=== PATIENT | female | born 1930 | race Caucasian/White ===

== ENCOUNTER 2016-08-11 08:56 | Emergency (ER) | payer MEDICARE, OTHER ==
[2016-08-11] MEDS ORDERED: LIDOCAINE/EPI/TETRACAINE 1 APPLIC SYRINGE TOP ONE ×2 (09:24→09:25)
--- NOTE | 2016-08-11 10:26 | ED Physician Documentation ---
General Adult - HISTORIAN Historian: patient - HPI Stated Complaint: Fall- Skin Tear Chief Complaint: General Adult Additional Information: fell Monday, no LOC, no vertigo, no syncope Onset: days ago (2) Timing: still present Severity: moderate Modifying Factors: skin tear right forearm, hit head right periorbital area Context: fell Quality: moderate Location: right forearm and right periorbital area Further Comments: no - ROS CONST: no problems EYES/ENT: none CVS/RESP: none GI/: none MS/SKIN/LYMPH: none NEURO/PSYCH: denies: headache, fainting, dizziness, tingling, numbness, difficulty walking, difficulty with speech, anxiety, depression - PAST HX Past History: A-Fib, hypertension Other History: other (hypothyroidism) Surgeries/Procedures: none Immunizations: UTD Allergies/Adverse Reactions: Allergies Allergy/AdvReac Type Severity Reaction Status Date / Time iodixanol [From Visipaque] AdvReac Mild Hives Verified 08/11/16 09:11 Home Medications: Ambulatory Orders Medication Instructions Recorded Albuterol Sulfate [Ventolin Hfa] 2 puff INH DIRECTED PRN 11/27/15 Calcium Citrate [Calcitrate] 1 tab PO DAILY 11/27/15 Diltiazem HCl [Cardizem Cd] 240 mg PO DAILY 11/27/15 Levothyroxine Sodium [Synthroid] 50 mcg PO DAILY 11/27/15 Lisinopril/Hydrochlorothiazide 1 each PO DAILY 11/27/15 [Zestoretic 20-12.5 mg Tablet] Metoprolol Tartrate [Lopressor] 50 mg PO DAILY 11/27/15 Potassium Chloride [Klor-Con M20] 20 meq PO DAILY 11/27/15 Rivaroxaban [Xarelto] 20 mg PO DAILY 11/27/15 - SOCIAL HX Smoking History: non-smoker Alcohol Use: none Drug Use: none - FAMILY HX Family History: No - VITAL SIGNS Vital Signs: Vital Signs Temp Pulse Resp BP Pulse Ox 97.1 F L 72 16 146/51 99 08/11/16 08:56 08/11/16 08:56 08/11/16 08:56 08/11/16 08:56 08/11/16 08:56 - REVIEWED ASSESSMENTS Nursing Assessment Reviewed: Yes Vitals Reviewed: Yes Procedures Wound Location: upper extremity (right forearm) Wound Length: 6 x 4 cm Wound's Depth, Shape: superficial, flap Wound Explored: clean Betadine Prep?: No (sureclepreeti) Anesthesia: L.E.T Wound Debrided: none Wound Repaired With: steri-strips Sterile Dressing Applied?: Yes Splint Applied?: No Sling Applied?: No Progress - Results/Orders Results/Orders: no testing ordered - Progress Progress: right forearm skin tear steri stripped and a pressure/matty dressing applied. Critical Care Note - Critical Care Note Total Time (mins): 0 ED Results Lab/Radiology - Lab Results Lab Results: none ordered - Radiology Radiology Impressions: none ordered - Orders Orders: ED Orders Category Date Time Status Lidocaine/Epi/Tetracaine [L.e.t] Med 08/11/16 09:25 Discontinued 1 applic TOP NOW ONE Lidocaine/Epi/Tetracaine [L.e.t] Med 08/11/16 09:24 Discontinued 2 applic TOP .STK-MED ONE General Adult Physical Exam - PHYSICAL EXAM GENERAL APPEARANCE: mild distress EENT: eye inspection normal, ENT inspection normal, pharynx normal, no signs of dehydration NECK: normal inspection, thyroid normal RESPIRATORY: no resp distress, chest non-tender, breath sounds normal CVS: reg rate & rhythm, heart sounds normal, equal pulses ABDOMEN: soft, no organomegaly, normal bowel sounds, no abdominal bruit BACK: normal inspection, no CVA tenderness SKIN: warm/dry, normal color EXTREMITIES: normal range of motion, other (right forearm 4 x 6 cm skin tear) NEURO: oriented X3, CN's nml as tested, motor nml, sensation nml, mood/affect nml, cognition normal Discharge Clincal Impression: Skin tear Additional Instructions: keep bandaged/clean/dry for 48 hours. Thern normal bathing. If steri strips do not fall off by themselves in seven days they may be removed. Home Medications: Ambulatory Orders Albuterol Sulfate [Ventolin Hfa] 2 puff INH DIRECTED PRN 11/27/15 Calcium Citrate [Calcitrate] 1 tab PO DAILY 11/27/15 Diltiazem HCl [Cardizem Cd] 240 mg PO DAILY 11/27/15 Levothyroxine Sodium [Synthroid] 50 mcg PO DAILY 11/27/15 Lisinopril/Hydrochlorothiazide [Zestoretic 20-12.5 mg Tablet] 1 each PO DAILY Metoprolol Tartrate [Lopressor] 50 mg PO DAILY 11/27/15 Potassium Chloride [Klor-Con M20] 20 meq PO DAILY 11/27/15 Rivaroxaban [Xarelto] 20 mg PO DAILY 11/27/15 Condition: Stable Disposition: 01 HOME, SELF-CARE Decision to Admit: NO Decision Time: 10:25
[2016-08-11 10:52] VITALS: BP 132/58
== END 2016-08-11 10:30 | disposition home or self-care (01) ==
LOC: ED 08:56
DX: S51.811A Laceration without foreign body of right forearm, initial encounter (principal); W19.XXXA Unspecified fall, initial encounter; Y93.9 Activity, unspecified; Y99.9 Unspecified external cause status
CPT/HCPCS: 99283

== ENCOUNTER 2016-10-24 09:08 | Emergency (ER) | payer MEDICARE, OTHER ==
[2016-10-24 09:26] VITALS: BP 174/50
--- NOTE | 2016-10-24 09:45 | ED Physician Documentation ---
Fall - HISTORIAN Historian: patient, spouse - HPI Stated Complaint: left wrist pain Chief Complaint: Fall Additional Information: fell [address] to bathroom-=just [place] balanced fell w lt hand/wrist pain. denied other injuries Onset: hours (299) Where: home Context: lost balance r: moderate Associated Symptoms:: no loss of consciousness Location of Pain/Injury: denies: head, neck, face, chest, abdomen, upper back, mid back, lower back, L shoulder Injury to Right Extremity: none Injury to Left Extremity: wrist, hand - ROS CONST: no problems NEURO: denies: dizziness, anxiety MS/SKIN/LYMPH: denies: weakness, numbness, neck pain, back pain CVS/RESP: none. denies: chest pain, shortness of breath, palpitations - PAST HX Past History: other (lymphoma cva copd) Allergies/Adverse Reactions: Allergies Allergy/AdvReac Type Severity Reaction Status Date / Time iodixanol [From Visipaque] AdvReac Mild Hives Verified 10/24/16 09:26 Home Medications: Ambulatory Orders Medication Instructions Recorded Albuterol Sulfate [Ventolin Hfa] 2 puff INH DIRECTED PRN 11/27/15 Calcium Citrate [Calcitrate] 1 tab PO DAILY 11/27/15 Diltiazem HCl [Cardizem Cd] 240 mg PO DAILY 11/27/15 Levothyroxine Sodium [Synthroid] 50 mcg PO DAILY 11/27/15 Lisinopril/Hydrochlorothiazide 1 each PO DAILY 11/27/15 [Zestoretic 20-12.5 mg Tablet] Metoprolol Tartrate [Lopressor] 50 mg PO DAILY 11/27/15 Potassium Chloride [Klor-Con M20] 20 meq PO DAILY 11/27/15 Rivaroxaban [Xarelto] 20 mg PO DAILY 11/27/15 - SOCIAL HX Smoking History: non-smoker Alcohol Use: none Drug Use: none - FAMILY HX Family History: no significant history - VITAL SIGNS Vital Signs: Vital Signs Temp Pulse Resp BP Pulse Ox 98.1 F 73 20 174/50 91 L 10/24/16 09:21 10/24/16 09:21 10/24/16 09:21 10/24/16 09:21 10/24/16 09:21 - REVIEWED ASSESSMENTS Nursing Assessment Reviewed: Yes Vitals Reviewed: Yes ED Results Lab/Radiology - Radiology Radiology Impressions: fracture lt distal radius-severe arthritis. - Orders Orders: ED Orders Category Date Time Status WRIST 3 VIEWS OR MORE [RAD] Stat Exams 10/24/16 Ordered XR HAND [HAND 3 VIEWS OR MORE] [RAD] Stat Exams 10/24/16 Ordered Fall Physical Exam - Physical Exam General Appearance: mild distress Head: non-tender, no swelling Neck: non-tender, painless ROM Eye: PONCHO, EOMI ENT: nml external inspection Resp/CVS: chest non-tender, no ecchymosis, breath sounds nml, no resp. distress , heart sounds nml Abdomen: soft, non-tender Neuro: oriented x3, sensation nml, motor nml, mood/affect nml Skin: color nml, no rash, cyanosis (dorsum lt hand) Back: no vertebral tenderness Extremities: pelvis stable, hips non-tender Joint: No: nml ROM - [place] Coma Score Eyes Open: Spontaneous Speech: Oriented Motor: Obeys Commands Discharge Clincal Impression: fall w/ fx lt wrist Home Medications: Ambulatory Orders Albuterol Sulfate [Ventolin Hfa] 2 puff INH DIRECTED PRN 11/27/15 Calcium Citrate [Calcitrate] 1 tab PO DAILY 11/27/15 Diltiazem HCl [Cardizem Cd] 240 mg PO DAILY 11/27/15 Levothyroxine Sodium [Synthroid] 50 mcg PO DAILY 11/27/15 Lisinopril/Hydrochlorothiazide [Zestoretic 20-12.5 mg Tablet] 1 each PO DAILY Metoprolol Tartrate [Lopressor] 50 mg PO DAILY 11/27/15 Potassium Chloride [Klor-Con M20] 20 meq PO DAILY 11/27/15 Rivaroxaban [Xarelto] 20 mg PO DAILY 11/27/15 Comments: home cpt has appt w/ortho wed Condition: Good Disposition: 01 HOME, SELF-CARE Decision to Admit: NO (n) Decision Time: 11:04
[2016-10-24] MEDS ORDERED: HYDROmorphone HCL/PF 1 MG/ML DISP.SYRIN ONE (10:07)
[2016-10-24] MEDS ORDERED: HYDROcodone /APAP 5/325 1 EACH TABLET PO ONE (10:38)
[2016-10-24] MEDS ORDERED: HYDROmorphone HCL/PF 1 MG/ML DISP.SYRIN IM ONE (10:42)
--- NOTE | 2016-10-24 13:55 | Diagnostic Imaging Report ---
[facility] [address] [facility].[address] [address] Report Submission Date: Oct 24, 2016 10:23:40 AM CDT Patient Study Name: SAMANTHA OHARA Date: Oct 24, 2016 9:49:39 AM CDT Modality Type: CR Gender: F Description: UPPER EXTREMITY : 34 Institution: [facility] Physician: ESTEBAN JARA - MERLY Left hand, 3 views. History: Pain after fall. Findings: There is a transverse distal radius fracture present with mild impaction and dorsal angulation. The ulna and remaining osseous structures of the hand are intact. There is narrowing of the interphalangeal joint spaces throughout. The bones are osteopenic. Impression: 1. Distal radius fracture with impaction and mild dorsal angulation. 2. Osteopenia. Electronically signed on Oct 24, 2016 10:23:40 AM CDT by: Nghia REDD
--- NOTE | 2016-10-24 13:56 | Diagnostic Imaging Report ---
[facility] [address] [facility].[address] [address] Report Submission Date: Oct 24, 2016 10:25:48 AM CDT Patient Study Name: SAMANTHA OHARA Date: Oct 24, 2016 9:53:00 AM CDT Modality Type: CR Gender: F Description: UPPER EXTREMITY : 34 Institution: [facility] Physician: ESTEBAN JARA - ER Left wrist, 3 views History: FALL BRUISING AND SWELLING OVER RADIAL SIDE OF WRIST AND 4TH AND 5TH METACARPALS Findings: There is a fracture of the distal radius without intra-articular extension. There is mild impaction and dorsal angulation. The ulna is intact. The remaining osseous structures of the wrist are also withoutfracture. The bones are diffusely osteopenic. Impression: 1. Transverse distal radius fracture with mild impaction and dorsal angulation. 2. Osteopenia Electronically signed on Oct 24, 2016 10:25:48 AM CDT by: Nghia REDD
== END 2016-10-24 11:12 | disposition home or self-care (01) ==
LOC: ED 09:08
DX: S62.102A Fracture of unspecified carpal bone, left wrist, initial encounter for closed fracture (principal); W19.XXXA Unspecified fall, initial encounter; Y93.9 Activity, unspecified; Y99.9 Unspecified external cause status
CPT/HCPCS: 73110; 73130; A9270; J1170; L3908; 96374; 99283

== ENCOUNTER 2016-10-29 11:32 | Inpatient (IN) | payer MEDICARE, OTHER ==
[2016-10-29] MEDS ORDERED: ALBUTEROL SULFATE 2.5 MG/3 ML AMPUL.NEB NEB PRN (13:57)
--- NOTE | 2016-10-29 14:05 | History and Physical Report ---
History of Present Illnes - History of Present Illness Reason for Visit: Weakness History of Present Illness: Patient presents for SNF admission. She reports 10-24-16 she fell and fractured her L wrist. She noted some L hip pain in Dr. Escoto's office and was found to have a L hip fracture. Underwent repair of both. Due to nature of injury, patient is being referred to SNF for strenthening and conditioning before returning home. Post op course has been unremarkable. Questions surround her anticoagulation. I was told by DR. Escoto's PA that we can put her on Lovenox. However Dr. Carney and Dr. 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 According to patient she told Dr. Carney she will refuse to be on Xarelto due to "what it did" to her body the last time she took it. So they settled on lovenox for 2 weeks - this is what is on her discharge orders. 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) Endocrine: Hypothyroidism - Past Surgical History Past Surgical History: Other (RML lung resection 2011 - lymphoma), Other (L hip and wrist repair 10/17.) - Past Family History Mother Family History: CVA, Hypertension, Father Family History: CAD, - Past Social History Smoke: Quit Alcohol: None Drugs: None Lives: With Family () - Health Maintenance Health Maintenance: Influenza Vaccine, Pneumococcal Vaccine, Mammogram Influenza Vaccine: Current for this Influenza Season Pneumonia Vaccine: Yes Resuscitation Status: Resusciation Status Resuscitation Status Full Code Review of Systems - Review of Systems Constitutional: Weakness. negative: Fever Eyes: negative: pain ENT: negative: Ear Pain Respiratory: negative: Cough, Shortness of Breath Cardiovascular: negative: Chest Pain Gastrointestinal: negative: Nausea, Constipation Genitourinary: negative: Dysuria Musculoskeletal: negative: Neck Pain Skin: negative: Rash Neurological: Weakness - Medications/Allergies Allergies/Adverse Reactions: Allergies Allergy/AdvReac Type Severity Reaction Status Date / Time iodixanol [From Visipaque] AdvReac Mild Hives Verified 10/29/16 19:46 IV Contrast Allergy Uncoded 10/29/16 19:46 Home Medications: Home Medications Albuterol Sulfate [Ventolin] 2.5 mg NEB Q4 PRN 10/29/16 Arformoterol Tartrate [Brovana] 15 mcg IH DAILY 10/29/16 Aspirin [Adult Low Dose Aspirin EC] 81 mg PO DAILY 10/29/16 Atorvastatin Calcium 40 mg PO HS 10/29/16 Budesonide [Pulmicort] 0.5 mg IH DAILY 10/29/16 Calcium Citrate/Vitamin D3 [Calcium Citrate +Vit D3 Tablet] 1 each PO DAILY Carvedilol [Coreg] 12.5 mg PO BS 10/29/16 Enoxaparin Sodium [Lovenox] 40 mg SQ QD 10/29/16 Escitalopram Oxalate [Lexapro] 10 mg PO QD 10/29/16 Gabapentin [Neurontin] 100 mg PO BID 10/29/16 HYDROcodone /APAP 5/325 [[place] 5/325] 1 - 2 each PO Q4 PRN 10/29/16 Hydrochlorothiazide [Hydrodiuril] 12.5 mg PO DAILY 10/29/16 Levothyroxine Sodium [Synthroid] 50 mcg PO DAILY 10/29/16 Lisinopril [Prinivil] 20 mg PO BID 10/29/16 Oxygen 2 l INH DAILY 10/29/16 Pantoprazole Sodium [Protonix] 40 mg PO 0700 10/29/16 Potassium Chloride [Klor-Con M20] 20 meq PO BS 10/29/16 amLODIPine BESYLATE [Norvasc] 5 mg PO 0900 10/29/16 Current Inpatient Medications: Current Inpatient Medications Albuterol Sulfate (Ventolin) 2.5 mg NEB Q4 PRN PRN Reason: Wheezing Amlodipine Besylate (Norvasc) 5 mg PO 0900 [facility] Arformoterol Tartrate (Brovana) 15 mcg IH DAILY [facility] Aspirin (Ecotrin) 81 mg PO DAILY [facility] Atorvastatin Calcium (Lipitor) 40 mg PO HS [facility] Budesonide (Pulmicort) 0.5 mg NEB DAILY [facility] Carvedilol (Coreg) 12.5 mg PO BID [facility] Enoxaparin Sodium (Lovenox) 40 mg SQ QD [facility] Stop: 11/12/16 13:59 Escitalopram Oxalate (Lexapro) 10 mg PO QD [facility] Gabapentin (Neurontin) 100 mg PO BID [facility] Hydrochlorothiazide (Hydrodiuril) 12.5 mg PO DAILY [facility] Levothyroxine Sodium (Synthroid) 50 mcg PO 0700 [facility] Lisinopril (Prinivil) 20 mg PO BID [facility] Pantoprazole Sodium (Protonix) 40 mg PO 0700 [facility] Potassium Chloride (Klor-Con M20) 20 meq PO BID [facility] Exam - Exam General: Alert, Oriented to Person, Oriented to Place, Oriented to Time, Cooperative, No acute distress HEENT: Atraumatic, PERRLA, EOMI, Mouth Mucous membr. moist/[place], Nose Mucous membr. moist/[place] Neck: Normal Range of Motion Lungs: Clear to auscultation, Normal air movement, Speaks full Sentences Cardiovascular: Regular rate Murmur: Systolic Murmur Abdomen: Normal bowel sounds, Soft, No tenderness Integumentary: Normal Extremities: No edema, Other (incision of L hip C/D/I; Cast on L wrist) Neurological: Generalized Weakness Psych/Mental Status: Mental status NL, Mood NL, Appropriate Affect, Intact Judgment Assessment/Plan - Assessment/Plan (1) Hip fracture, left Status: Acute Current Visit: Yes Qualifiers: Encounter type: sequela Qualified Code(s): S72.002S - Fracture of unspecified part of neck of left femur, sequela Plan: Plan to do lovenox for 2 weeks then switch to ASA daily. PT/OT eval and treat. Manoj out in 10 days. (2) Left wrist fracture Status: Acute Current Visit: Yes Qualifiers: Encounter type: sequela Qualified Code(s): S62.102S - Fracture of unspecified carpal bone, left wrist, sequela Plan: Casted until removed by ortho. (3) HTN (hypertension) Status: Chronic Current Visit: Yes Qualifiers: Hypertension type: essential hypertension Qualified Code(s): I10 - Essential (primary) hypertension Plan: stable. (4) COPD (chronic obstructive pulmonary disease) Status: Chronic Current Visit: Yes Qualifiers: COPD type: emphysema Emphysema type: unspecified Qualified Code(s): J43.9 - Emphysema, unspecified Plan: Cont. current regimen. (5) Weakness Status: Acute Current Visit: Yes Plan: PT/OT eval and treat. VTE Assessment - RISK FACTOR SCORE VTE RISK FACTOR SCORES: AGE OVER 60 YEARS, DOCUMENTED HX OF VTE - RISK VTE MODERATE RISK: SCORE OF 2 (RISK PROXIMAL DVT 2-4%) PROPHYAXIS NEEDED
[2016-10-29] MEDS: ESCITALOPRAM OXALATE 10 MG TABLET PO SCH (15:17)
[2016-10-29] MEDS: ENOXAPARIN SODIUM 40 MG/0.4 ML DISP.SYRIN SQ SCH (15:17)
[2016-10-29] MEDS ORDERED: CARVEDILOL 6.25 MG TABLET PO ONE ×2 (17:42→20:26)
[2016-10-29] MEDS: HYDROcodone /APAP 5/325 1 EACH TABLET PO PRN (17:48)
[2016-10-29 19:45] VITALS: BMI 18.8
[2016-10-29] MEDS: ATORVASTATIN CALCIUM 80 MG TABLET PO SCH (21:01)
[2016-10-29] MEDS: CARVEDILOL 12.5 MG TABLET PO SCH (21:01)
[2016-10-29] MEDS: LISINOPRIL 20 MG TABLET PO SCH (21:01)
[2016-10-29] MEDS: GABAPENTIN 100 MG CAPSULE PO SCH (21:01)
[2016-10-29] MEDS: POTASSIUM CHLORIDE 20 MEQ TABLET.ER PO SCH (21:01)
[2016-10-30] MEDS: HYDROcodone /APAP 5/325 1 EACH TABLET PO PRN ×4 (00:11→19:03)
[2016-10-30] MEDS ORDERED: CARVEDILOL 6.25 MG TABLET PO ONE (04:57)
[2016-10-30] MEDS: PANTOPRAZOLE SODIUM 40 MG TABLET PO SCH (05:11)
[2016-10-30] MEDS: LEVOTHYROXINE SODIUM 25 MCG TABLET PO SCH (05:12)
[2016-10-30] MEDS: ACETYLCYSTEINE EACHEYE SCH ×4 (06:43→20:26)
[2016-10-30] MEDS ORDERED: OXYGEN INH SCH (09:00)
[2016-10-30] MEDS: CARVEDILOL 12.5 MG TABLET PO SCH ×2 (09:27→20:44)
[2016-10-30] MEDS: POTASSIUM CHLORIDE 20 MEQ TABLET.ER PO SCH ×2 (09:28→20:25)
[2016-10-30] MEDS: amLODIPine BESYLATE 5 MG TABLET PO SCH (09:29)
[2016-10-30] MEDS: LISINOPRIL 20 MG TABLET PO SCH ×2 (09:29→20:26)
[2016-10-30] MEDS: ASPIRIN EC 81 MG TABLET.DR PO SCH (09:49)
[2016-10-30] MEDS: HYDROCHLOROTHIAZIDE 25 MG TABLET PO SCH (09:52)
[2016-10-30] MEDS: GABAPENTIN 100 MG CAPSULE PO SCH ×2 (09:55→20:26)
[2016-10-30] MEDS: BUDESONIDE 0.5MG/2ML AMPUL.NEB NEB SCH (12:45)
[2016-10-30] MEDS: DOCUSATE SODIUM 100 MG CAPSULE PO SCH ×2 (14:24→20:27)
[2016-10-30] MEDS: ESCITALOPRAM OXALATE 10 MG TABLET PO SCH (14:25)
[2016-10-30] MEDS: ENOXAPARIN SODIUM 40 MG/0.4 ML DISP.SYRIN SQ SCH (14:29)
[2016-10-30] MEDS: ARFORMOTEROL TARTRATE 15 MCG/2 ML AMPUL.NEB IH SCH (15:28)
[2016-10-30] MEDS: ATORVASTATIN CALCIUM 80 MG TABLET PO SCH (20:25)
[2016-10-31] MEDS: HYDROcodone /APAP 5/325 1 EACH TABLET PO PRN ×5 (02:27→21:37)
[2016-10-31] MEDS: PANTOPRAZOLE SODIUM 40 MG TABLET PO SCH (06:24)
[2016-10-31] MEDS: LEVOTHYROXINE SODIUM 25 MCG TABLET PO SCH (06:24)
[2016-10-31] MEDS: ACETYLCYSTEINE EACHEYE SCH ×4 (06:26→20:43)
[2016-10-31] MEDS: HYDROCHLOROTHIAZIDE 25 MG TABLET PO SCH (08:03)
[2016-10-31] MEDS: LISINOPRIL 20 MG TABLET PO SCH ×2 (08:03→20:53)
[2016-10-31] MEDS: ASPIRIN EC 81 MG TABLET.DR PO SCH (08:03)
[2016-10-31] MEDS: DOCUSATE SODIUM 100 MG CAPSULE PO SCH ×2 (08:03→20:43)
[2016-10-31] MEDS: CARVEDILOL 12.5 MG TABLET PO SCH ×2 (08:04→20:43)
[2016-10-31] MEDS: POTASSIUM CHLORIDE 20 MEQ TABLET.ER PO SCH ×2 (08:04→20:52)
[2016-10-31] MEDS: amLODIPine BESYLATE 5 MG TABLET PO SCH (08:04)
[2016-10-31] MEDS: GABAPENTIN 100 MG CAPSULE PO SCH ×2 (08:04→20:52)
[2016-10-31] MEDS: BUDESONIDE 0.5MG/2ML AMPUL.NEB NEB SCH (09:10)
[2016-10-31] MEDS: ARFORMOTEROL TARTRATE 15 MCG/2 ML AMPUL.NEB IH SCH (09:26)
[2016-10-31] MEDS: ENOXAPARIN SODIUM 40 MG/0.4 ML DISP.SYRIN SQ SCH (13:01)
[2016-10-31] MEDS: ESCITALOPRAM OXALATE 10 MG TABLET PO SCH (13:01)
[2016-10-31] MEDS ORDERED: CARVEDILOL 6.25 MG TABLET PO ONE (20:41)
[2016-10-31] MEDS: ATORVASTATIN CALCIUM 80 MG TABLET PO SCH (20:52)
[2016-11-01] MEDS: HYDROcodone /APAP 5/325 1 EACH TABLET PO PRN ×3 (03:43→14:05)
[2016-11-01] MEDS ORDERED: CARVEDILOL 6.25 MG TABLET PO ONE (04:19)
[2016-11-01] MEDS: LEVOTHYROXINE SODIUM 25 MCG TABLET PO SCH (06:44)
[2016-11-01] MEDS: PANTOPRAZOLE SODIUM 40 MG TABLET PO SCH (06:44)
--- NOTE | 2016-11-01 08:16 | Inpatient Progress Note ---
Subjective - Required Recertification Statement I anticipate X number of days because-include discharge plan: 7 - Review of Systems Subjective: Doing well. Occasional pain in wrist and hip. Objective - Exam Vitals and I&O: Vital Signs Temp 98.4 F 10/31/16 21:00 Pulse 63 10/31/16 21:00 Resp 20 10/31/16 21:00 BP 142/49 10/31/16 21:00 Pulse Ox 97 10/31/16 21:00 Intake & Output 10/31/16 10/31/16 11/01/16 11:59 23:59 11:59 Intake Total 360 200 360 Balance 360 200 360 Weight 46.266 kg Intake: Oral 360 200 360 Other: Voiding Method Toilet Toilet # Voids 4 4 # Bowel Movements 0 General: Alert, Oriented to Person, Oriented to Place, Oriented to Time, Cooperative, No acute distress Lungs: Clear to auscultation, Normal air movement, Speaks full Sentences Assessment/Plan - Assessment/Plan (1) Hip fracture, left Status: Acute Current Visit: Yes Qualifiers: Encounter type: sequela Qualified Code(s): S72.002S - Fracture of unspecified part of neck of left femur, sequela Plan: Cont. PT/OT. Lovenox for DVT prevention. (2) Left wrist fracture Status: Acute Current Visit: Yes Qualifiers: Encounter type: sequela Qualified Code(s): S62.102S - Fracture of unspecified carpal bone, left wrist, sequela (3) HTN (hypertension) Status: Chronic Current Visit: Yes Qualifiers: Hypertension type: essential hypertension Qualified Code(s): I10 - Essential (primary) hypertension (4) COPD (chronic obstructive pulmonary disease) Status: Chronic Current Visit: Yes Qualifiers: COPD type: emphysema Emphysema type: unspecified Qualified Code(s): J43.9 - Emphysema, unspecified (5) Weakness Status: Acute Current Visit: Yes
[2016-11-01] MEDS: BUDESONIDE 0.5MG/2ML AMPUL.NEB NEB SCH (09:30)
[2016-11-01] MEDS: HYDROCHLOROTHIAZIDE 25 MG TABLET PO SCH (09:33)
[2016-11-01] MEDS: POTASSIUM CHLORIDE 20 MEQ TABLET.ER PO SCH ×2 (09:33→20:04)
[2016-11-01] MEDS: ACETYLCYSTEINE EACHEYE SCH ×4 (09:33→20:06)
[2016-11-01] MEDS: GABAPENTIN 100 MG CAPSULE PO SCH ×2 (09:36→20:05)
[2016-11-01] MEDS: CARVEDILOL 12.5 MG TABLET PO SCH ×2 (09:36→20:04)
[2016-11-01] MEDS: LISINOPRIL 20 MG TABLET PO SCH ×2 (09:36→20:05)
[2016-11-01] MEDS: amLODIPine BESYLATE 5 MG TABLET PO SCH (09:36)
[2016-11-01] MEDS: ASPIRIN EC 81 MG TABLET.DR PO SCH (09:36)
[2016-11-01] MEDS: DOCUSATE SODIUM 100 MG CAPSULE PO SCH ×2 (09:37→20:06)
[2016-11-01] MEDS: ARFORMOTEROL TARTRATE 15 MCG/2 ML AMPUL.NEB IH SCH (09:38)
[2016-11-01] MEDS: ESCITALOPRAM OXALATE 10 MG TABLET PO SCH (13:45)
[2016-11-01] MEDS: ENOXAPARIN SODIUM 40 MG/0.4 ML DISP.SYRIN SQ SCH (13:45)
[2016-11-01] MEDS: ATORVASTATIN CALCIUM 80 MG TABLET PO SCH (20:05)
[2016-11-01] MEDS ORDERED: HYDROCHLOROTHIAZIDE 25 MG TABLET PO ONE (22:53)
[2016-11-02] MEDS: PANTOPRAZOLE SODIUM 40 MG TABLET PO SCH (05:53)
[2016-11-02] MEDS: LEVOTHYROXINE SODIUM 25 MCG TABLET PO SCH (05:53)
[2016-11-02] MEDS: ACETYLCYSTEINE EACHEYE SCH ×4 (07:22→20:50)
[2016-11-02] MEDS: HYDROcodone /APAP 5/325 1 EACH TABLET PO PRN ×3 (08:41→20:54)
[2016-11-02] MEDS: DOCUSATE SODIUM 100 MG CAPSULE PO SCH ×2 (09:16→20:41)
[2016-11-02] MEDS: CARVEDILOL 12.5 MG TABLET PO SCH ×2 (09:18→20:41)
[2016-11-02] MEDS: HYDROCHLOROTHIAZIDE 25 MG TABLET PO SCH (09:18)
[2016-11-02] MEDS: ASPIRIN EC 81 MG TABLET.DR PO SCH (09:18)
[2016-11-02] MEDS: POTASSIUM CHLORIDE 20 MEQ TABLET.ER PO SCH ×2 (09:20→20:40)
[2016-11-02] MEDS: GABAPENTIN 100 MG CAPSULE PO SCH ×2 (09:21→20:41)
[2016-11-02] MEDS: amLODIPine BESYLATE 5 MG TABLET PO SCH (09:21)
[2016-11-02] MEDS: LISINOPRIL 20 MG TABLET PO SCH ×2 (09:21→20:40)
[2016-11-02] MEDS: BUDESONIDE 0.5MG/2ML AMPUL.NEB NEB SCH (09:38)
[2016-11-02] MEDS: ARFORMOTEROL TARTRATE 15 MCG/2 ML AMPUL.NEB IH SCH (09:38)
[2016-11-02] MEDS: ESCITALOPRAM OXALATE 10 MG TABLET PO SCH (13:55)
[2016-11-02] MEDS: ENOXAPARIN SODIUM 40 MG/0.4 ML DISP.SYRIN SQ SCH (13:55)
[2016-11-02] MEDS: ATORVASTATIN CALCIUM 80 MG TABLET PO SCH (20:40)
[2016-11-03] MEDS: PANTOPRAZOLE SODIUM 40 MG TABLET PO SCH (05:56)
[2016-11-03] MEDS: LEVOTHYROXINE SODIUM 25 MCG TABLET PO SCH (05:56)
[2016-11-03] MEDS: HYDROcodone /APAP 5/325 1 EACH TABLET PO PRN ×4 (06:41→22:38)
[2016-11-03] MEDS: ACETYLCYSTEINE EACHEYE SCH ×4 (06:41→20:07)
[2016-11-03] MEDS: CARVEDILOL 12.5 MG TABLET PO SCH ×2 (08:50→20:06)
[2016-11-03] MEDS: POTASSIUM CHLORIDE 20 MEQ TABLET.ER PO SCH ×3 (08:50→20:06)
[2016-11-03] MEDS: GABAPENTIN 100 MG CAPSULE PO SCH ×2 (08:51→20:07)
[2016-11-03] MEDS: HYDROCHLOROTHIAZIDE 25 MG TABLET PO SCH (08:52)
[2016-11-03] MEDS: ASPIRIN EC 81 MG TABLET.DR PO SCH (08:52)
[2016-11-03] MEDS: LISINOPRIL 20 MG TABLET PO SCH ×2 (08:52→20:07)
[2016-11-03] MEDS: DOCUSATE SODIUM 100 MG CAPSULE PO SCH ×2 (08:54→20:07)
[2016-11-03] MEDS: amLODIPine BESYLATE 5 MG TABLET PO SCH (08:54)
[2016-11-03] MEDS: ARFORMOTEROL TARTRATE 15 MCG/2 ML AMPUL.NEB IH SCH (10:00)
[2016-11-03] MEDS: BUDESONIDE 0.5MG/2ML AMPUL.NEB NEB SCH (10:00)
[2016-11-03] MEDS: ENOXAPARIN SODIUM 40 MG/0.4 ML DISP.SYRIN SQ SCH (14:21)
[2016-11-03] MEDS: ESCITALOPRAM OXALATE 10 MG TABLET PO SCH (14:22)
[2016-11-03] MEDS: ATORVASTATIN CALCIUM 80 MG TABLET PO SCH (20:06)
[2016-11-04] MEDS: HYDROcodone /APAP 5/325 1 EACH TABLET PO PRN ×4 (04:43→19:04)
[2016-11-04] MEDS: LEVOTHYROXINE SODIUM 25 MCG TABLET PO SCH (06:06)
[2016-11-04] MEDS: PANTOPRAZOLE SODIUM 40 MG TABLET PO SCH (06:06)
[2016-11-04] MEDS: ACETYLCYSTEINE EACHEYE SCH ×4 (06:07→20:27)
[2016-11-04] MEDS: POTASSIUM CHLORIDE 20 MEQ TABLET.ER PO SCH ×2 (13:20→20:25)
[2016-11-04] MEDS: LISINOPRIL 20 MG TABLET PO SCH ×2 (13:20→20:25)
[2016-11-04] MEDS: CARVEDILOL 12.5 MG TABLET PO SCH ×2 (13:20→20:25)
[2016-11-04] MEDS: GABAPENTIN 100 MG CAPSULE PO SCH ×2 (13:20→20:25)
[2016-11-04] MEDS: amLODIPine BESYLATE 5 MG TABLET PO SCH (13:23)
[2016-11-04] MEDS: ASPIRIN EC 81 MG TABLET.DR PO SCH (13:23)
[2016-11-04] MEDS: HYDROCHLOROTHIAZIDE 25 MG TABLET PO SCH (13:23)
[2016-11-04] MEDS: ARFORMOTEROL TARTRATE 15 MCG/2 ML AMPUL.NEB IH SCH (13:23)
[2016-11-04] MEDS: ESCITALOPRAM OXALATE 10 MG TABLET PO SCH (13:24)
[2016-11-04] MEDS: ENOXAPARIN SODIUM 40 MG/0.4 ML DISP.SYRIN SQ SCH (13:25)
[2016-11-04] MEDS: DOCUSATE SODIUM 100 MG CAPSULE PO SCH ×2 (13:26→20:25)
[2016-11-04] MEDS: BUDESONIDE 0.5MG/2ML AMPUL.NEB NEB SCH (20:19)
[2016-11-04] MEDS: ATORVASTATIN CALCIUM 80 MG TABLET PO SCH (20:25)
[2016-11-05] MEDS: HYDROcodone /APAP 5/325 1 EACH TABLET PO PRN ×2 (03:00→13:29)
[2016-11-05] MEDS: LEVOTHYROXINE SODIUM 25 MCG TABLET PO SCH (05:55)
[2016-11-05] MEDS: PANTOPRAZOLE SODIUM 40 MG TABLET PO SCH (05:55)
[2016-11-05] MEDS: ACETYLCYSTEINE EACHEYE SCH ×4 (05:57→22:48)
[2016-11-05] MEDS: ARFORMOTEROL TARTRATE 15 MCG/2 ML AMPUL.NEB IH SCH (09:45)
[2016-11-05] MEDS: BUDESONIDE 0.5MG/2ML AMPUL.NEB NEB SCH (09:45)
[2016-11-05] MEDS: DOCUSATE SODIUM 100 MG CAPSULE PO SCH ×2 (10:04→19:59)
[2016-11-05] MEDS: LISINOPRIL 20 MG TABLET PO SCH ×2 (10:04→19:59)
[2016-11-05] MEDS: GABAPENTIN 100 MG CAPSULE PO SCH ×2 (10:04→19:59)
[2016-11-05] MEDS: ASPIRIN EC 81 MG TABLET.DR PO SCH (10:04)
[2016-11-05] MEDS: POTASSIUM CHLORIDE 20 MEQ TABLET.ER PO SCH ×2 (10:04→19:59)
[2016-11-05] MEDS: CARVEDILOL 12.5 MG TABLET PO SCH ×2 (10:04→19:59)
[2016-11-05] MEDS: HYDROCHLOROTHIAZIDE 25 MG TABLET PO SCH (10:05)
[2016-11-05] MEDS: amLODIPine BESYLATE 5 MG TABLET PO SCH (10:05)
[2016-11-05] MEDS: ENOXAPARIN SODIUM 40 MG/0.4 ML DISP.SYRIN SQ SCH (13:29)
[2016-11-05] MEDS: ESCITALOPRAM OXALATE 10 MG TABLET PO SCH (13:30)
[2016-11-05] MEDS: ATORVASTATIN CALCIUM 80 MG TABLET PO SCH (19:59)
[2016-11-06] MEDS: HYDROcodone /APAP 5/325 1 EACH TABLET PO PRN ×4 (03:00→19:42)
[2016-11-06] MEDS: PANTOPRAZOLE SODIUM 40 MG TABLET PO SCH (06:04)
[2016-11-06] MEDS: LEVOTHYROXINE SODIUM 25 MCG TABLET PO SCH (06:04)
[2016-11-06] MEDS: ACETYLCYSTEINE EACHEYE SCH ×4 (06:31→21:57)
[2016-11-06] MEDS: GABAPENTIN 100 MG CAPSULE PO SCH ×2 (09:32→19:45)
[2016-11-06] MEDS: CARVEDILOL 12.5 MG TABLET PO SCH ×2 (09:32→19:43)
[2016-11-06] MEDS: amLODIPine BESYLATE 5 MG TABLET PO SCH (09:32)
[2016-11-06] MEDS: LISINOPRIL 20 MG TABLET PO SCH ×2 (09:32→19:46)
[2016-11-06] MEDS: HYDROCHLOROTHIAZIDE 25 MG TABLET PO SCH (09:32)
[2016-11-06] MEDS: ASPIRIN EC 81 MG TABLET.DR PO SCH (09:32)
[2016-11-06] MEDS: DOCUSATE SODIUM 100 MG CAPSULE PO SCH ×2 (09:32→19:43)
[2016-11-06] MEDS: POTASSIUM CHLORIDE 20 MEQ TABLET.ER PO SCH ×2 (09:32→19:44)
[2016-11-06] MEDS: BUDESONIDE 0.5MG/2ML AMPUL.NEB NEB SCH (09:59)
[2016-11-06] MEDS: ARFORMOTEROL TARTRATE 15 MCG/2 ML AMPUL.NEB IH SCH (09:59)
[2016-11-06] MEDS: ESCITALOPRAM OXALATE 10 MG TABLET PO SCH (14:30)
[2016-11-06] MEDS: ENOXAPARIN SODIUM 40 MG/0.4 ML DISP.SYRIN SQ SCH (14:30)
[2016-11-06] MEDS: ATORVASTATIN CALCIUM 80 MG TABLET PO SCH (19:44)
[2016-11-07] MEDS: HYDROcodone /APAP 5/325 1 EACH TABLET PO PRN ×4 (03:14→20:40)
[2016-11-07] MEDS: PANTOPRAZOLE SODIUM 40 MG TABLET PO SCH (05:48)
[2016-11-07] MEDS: LEVOTHYROXINE SODIUM 25 MCG TABLET PO SCH (05:48)
[2016-11-07] MEDS: ACETYLCYSTEINE EACHEYE SCH ×4 (06:20→20:41)
[2016-11-07] MEDS: POTASSIUM CHLORIDE 20 MEQ TABLET.ER PO SCH ×2 (09:10→20:41)
[2016-11-07] MEDS: ARFORMOTEROL TARTRATE 15 MCG/2 ML AMPUL.NEB IH SCH (09:10)
[2016-11-07] MEDS: CARVEDILOL 12.5 MG TABLET PO SCH ×2 (09:10→20:41)
[2016-11-07] MEDS: GABAPENTIN 100 MG CAPSULE PO SCH ×2 (09:10→20:40)
[2016-11-07] MEDS: LISINOPRIL 20 MG TABLET PO SCH ×2 (09:10→20:41)
[2016-11-07] MEDS: BUDESONIDE 0.5MG/2ML AMPUL.NEB NEB SCH (09:10)
[2016-11-07] MEDS: HYDROCHLOROTHIAZIDE 25 MG TABLET PO SCH (09:11)
[2016-11-07] MEDS: ASPIRIN EC 81 MG TABLET.DR PO SCH (09:11)
[2016-11-07] MEDS: amLODIPine BESYLATE 5 MG TABLET PO SCH (09:12)
[2016-11-07] MEDS: DOCUSATE SODIUM 100 MG CAPSULE PO SCH ×2 (09:12→20:41)
[2016-11-07] MEDS: ENOXAPARIN SODIUM 40 MG/0.4 ML DISP.SYRIN SQ SCH (14:05)
[2016-11-07] MEDS: ESCITALOPRAM OXALATE 10 MG TABLET PO SCH (14:05)
[2016-11-07] MEDS: ATORVASTATIN CALCIUM 80 MG TABLET PO SCH (20:40)
[2016-11-08] MEDS: HYDROcodone /APAP 5/325 1 EACH TABLET PO PRN ×3 (03:04→17:55)
[2016-11-08] MEDS: LEVOTHYROXINE SODIUM 25 MCG TABLET PO SCH (06:19)
[2016-11-08] MEDS: PANTOPRAZOLE SODIUM 40 MG TABLET PO SCH (06:19)
[2016-11-08] MEDS: ACETYLCYSTEINE EACHEYE SCH ×4 (08:49→20:58)
[2016-11-08] MEDS: HYDROCHLOROTHIAZIDE 25 MG TABLET PO SCH (08:50)
[2016-11-08] MEDS: DOCUSATE SODIUM 100 MG CAPSULE PO SCH ×2 (08:50→20:58)
[2016-11-08] MEDS: amLODIPine BESYLATE 5 MG TABLET PO SCH (08:50)
[2016-11-08] MEDS: CARVEDILOL 12.5 MG TABLET PO SCH ×2 (08:50→20:57)
[2016-11-08] MEDS: POTASSIUM CHLORIDE 20 MEQ TABLET.ER PO SCH ×2 (08:50→20:57)
[2016-11-08] MEDS: LISINOPRIL 20 MG TABLET PO SCH ×2 (08:50→20:58)
[2016-11-08] MEDS: ASPIRIN EC 81 MG TABLET.DR PO SCH (08:50)
[2016-11-08] MEDS: GABAPENTIN 100 MG CAPSULE PO SCH ×2 (08:51→20:58)
[2016-11-08] MEDS: BUDESONIDE 0.5MG/2ML AMPUL.NEB NEB SCH (09:26)
[2016-11-08] MEDS: ARFORMOTEROL TARTRATE 15 MCG/2 ML AMPUL.NEB IH SCH (09:27)
[2016-11-08] MEDS: ESCITALOPRAM OXALATE 10 MG TABLET PO SCH (13:42)
[2016-11-08] MEDS: ENOXAPARIN SODIUM 40 MG/0.4 ML DISP.SYRIN SQ SCH (13:42)
[2016-11-08] MEDS: ATORVASTATIN CALCIUM 80 MG TABLET PO SCH (20:57)
[2016-11-09] MEDS: HYDROcodone /APAP 5/325 1 EACH TABLET PO PRN ×4 (02:28→20:52)
[2016-11-09] MEDS: PANTOPRAZOLE SODIUM 40 MG TABLET PO SCH (06:09)
[2016-11-09] MEDS: LEVOTHYROXINE SODIUM 25 MCG TABLET PO SCH (06:09)
[2016-11-09] MEDS: ACETYLCYSTEINE EACHEYE SCH ×4 (06:13→20:53)
--- NOTE | 2016-11-09 07:52 | Inpatient Progress Note ---
Subjective - Required Recertification Statement I anticipate X number of days because-include discharge plan: 5 - Review of Systems Subjective: Doing well. Pain controlled. PT going well. Objective - Exam Vitals and I&O: Vital Signs Temp 97.7 F 11/08/16 20:49 Pulse 61 11/08/16 21:00 Resp 18 11/08/16 21:00 BP 129/45 11/08/16 08:22 Pulse Ox 97 11/08/16 20:49 Intake & Output 11/08/16 11/08/16 11/09/16 11:59 23:59 11:59 Intake Total 600 720 Balance 600 720 Intake: Oral 600 720 Other: Voiding Method Toilet Toilet # Voids 3 3 # Bowel Movements 0 General: Alert, Oriented to Person, Oriented to Place, Oriented to Time, Cooperative, No acute distress HEENT: Atraumatic Lungs: Clear to auscultation, Normal air movement Cardiovascular: Regular rate Assessment/Plan - Assessment/Plan (1) Hip fracture, left Status: Acute Current Visit: Yes Qualifiers: Encounter type: sequela Qualified Code(s): S72.002S - Fracture of unspecified part of neck of left femur, sequela (2) Left wrist fracture Status: Acute Current Visit: Yes Qualifiers: Encounter type: sequela Qualified Code(s): S62.102S - Fracture of unspecified carpal bone, left wrist, sequela (3) HTN (hypertension) Status: Chronic Current Visit: Yes Qualifiers: Hypertension type: essential hypertension Qualified Code(s): I10 - Essential (primary) hypertension (4) COPD (chronic obstructive pulmonary disease) Status: Chronic Current Visit: Yes Qualifiers: COPD type: emphysema Emphysema type: unspecified Qualified Code(s): J43.9 - Emphysema, unspecified (5) Weakness Status: Acute Current Visit: Yes Plan: Doing well. Plan for d/c next week with home health.
[2016-11-09] MEDS: DOCUSATE SODIUM 100 MG CAPSULE PO SCH ×2 (09:15→20:52)
[2016-11-09] MEDS: CARVEDILOL 12.5 MG TABLET PO SCH ×2 (09:15→20:52)
[2016-11-09] MEDS: ASPIRIN EC 81 MG TABLET.DR PO SCH (09:16)
[2016-11-09] MEDS: HYDROCHLOROTHIAZIDE 25 MG TABLET PO SCH (09:16)
[2016-11-09] MEDS: amLODIPine BESYLATE 5 MG TABLET PO SCH (09:19)
[2016-11-09] MEDS: POTASSIUM CHLORIDE 20 MEQ TABLET.ER PO SCH ×2 (09:19→20:52)
[2016-11-09] MEDS: LISINOPRIL 20 MG TABLET PO SCH ×2 (09:19→20:52)
[2016-11-09] MEDS: GABAPENTIN 100 MG CAPSULE PO SCH ×2 (09:19→20:52)
[2016-11-09] MEDS: BUDESONIDE 0.5MG/2ML AMPUL.NEB NEB SCH (10:35)
[2016-11-09] MEDS: ARFORMOTEROL TARTRATE 15 MCG/2 ML AMPUL.NEB IH SCH (10:40)
[2016-11-09] MEDS: ENOXAPARIN SODIUM 40 MG/0.4 ML DISP.SYRIN SQ SCH (14:19)
[2016-11-09] MEDS: ESCITALOPRAM OXALATE 10 MG TABLET PO SCH (14:19)
[2016-11-09] MEDS: ATORVASTATIN CALCIUM 80 MG TABLET PO SCH (20:52)
[2016-11-10] MEDS: HYDROcodone /APAP 5/325 1 EACH TABLET PO PRN ×4 (02:34→19:03)
[2016-11-10] MEDS: PANTOPRAZOLE SODIUM 40 MG TABLET PO SCH (06:03)
[2016-11-10] MEDS: LEVOTHYROXINE SODIUM 25 MCG TABLET PO SCH (06:03)
[2016-11-10] MEDS: ACETYLCYSTEINE EACHEYE SCH ×4 (06:05→20:52)
[2016-11-10] MEDS: CARVEDILOL 12.5 MG TABLET PO SCH ×2 (08:57→20:50)
[2016-11-10] MEDS: POTASSIUM CHLORIDE 20 MEQ TABLET.ER PO SCH ×2 (08:57→20:50)
[2016-11-10] MEDS: GABAPENTIN 100 MG CAPSULE PO SCH ×2 (08:58→20:50)
[2016-11-10] MEDS: LISINOPRIL 20 MG TABLET PO SCH ×2 (08:58→20:50)
[2016-11-10] MEDS: HYDROCHLOROTHIAZIDE 25 MG TABLET PO SCH (08:58)
[2016-11-10] MEDS: ASPIRIN EC 81 MG TABLET.DR PO SCH (08:58)
[2016-11-10] MEDS: DOCUSATE SODIUM 100 MG CAPSULE PO SCH ×2 (08:59→20:50)
[2016-11-10] MEDS: amLODIPine BESYLATE 5 MG TABLET PO SCH (08:59)
[2016-11-10] MEDS: ARFORMOTEROL TARTRATE 15 MCG/2 ML AMPUL.NEB IH SCH (09:41)
[2016-11-10] MEDS: BUDESONIDE 0.5MG/2ML AMPUL.NEB NEB SCH (09:42)
[2016-11-10] MEDS: ESCITALOPRAM OXALATE 10 MG TABLET PO SCH (15:07)
[2016-11-10] MEDS: ENOXAPARIN SODIUM 40 MG/0.4 ML DISP.SYRIN SQ SCH (15:08)
[2016-11-10] MEDS: ATORVASTATIN CALCIUM 80 MG TABLET PO SCH (20:50)
[2016-11-11] MEDS: HYDROcodone /APAP 5/325 1 EACH TABLET PO PRN ×4 (03:22→20:01)
[2016-11-11] MEDS: PANTOPRAZOLE SODIUM 40 MG TABLET PO SCH (05:45)
[2016-11-11] MEDS: LEVOTHYROXINE SODIUM 25 MCG TABLET PO SCH (05:45)
[2016-11-11] MEDS: ACETYLCYSTEINE EACHEYE SCH ×4 (05:48→20:02)
[2016-11-11] MEDS: LISINOPRIL 20 MG TABLET PO SCH ×2 (08:42→20:02)
[2016-11-11] MEDS: HYDROCHLOROTHIAZIDE 25 MG TABLET PO SCH (08:42)
[2016-11-11] MEDS: DOCUSATE SODIUM 100 MG CAPSULE PO SCH ×2 (08:42→20:01)
[2016-11-11] MEDS: GABAPENTIN 100 MG CAPSULE PO SCH ×2 (08:42→20:01)
[2016-11-11] MEDS: POTASSIUM CHLORIDE 20 MEQ TABLET.ER PO SCH ×2 (08:42→20:02)
[2016-11-11] MEDS: ASPIRIN EC 81 MG TABLET.DR PO SCH (08:43)
[2016-11-11] MEDS: CARVEDILOL 12.5 MG TABLET PO SCH ×2 (08:43→20:02)
[2016-11-11] MEDS: amLODIPine BESYLATE 5 MG TABLET PO SCH (08:43)
[2016-11-11] MEDS: BUDESONIDE 0.5MG/2ML AMPUL.NEB NEB SCH (08:43)
[2016-11-11] MEDS: ARFORMOTEROL TARTRATE 15 MCG/2 ML AMPUL.NEB IH SCH (08:53)
[2016-11-11] MEDS: ESCITALOPRAM OXALATE 10 MG TABLET PO SCH (14:57)
[2016-11-11] MEDS: ENOXAPARIN SODIUM 40 MG/0.4 ML DISP.SYRIN SQ SCH (14:57)
[2016-11-11] MEDS: ATORVASTATIN CALCIUM 80 MG TABLET PO SCH (20:01)
[2016-11-12] MEDS: HYDROcodone /APAP 5/325 1 EACH TABLET PO PRN ×3 (02:05→17:55)
[2016-11-12] MEDS: LEVOTHYROXINE SODIUM 25 MCG TABLET PO SCH (06:06)
[2016-11-12] MEDS: PANTOPRAZOLE SODIUM 40 MG TABLET PO SCH (06:06)
[2016-11-12] MEDS: ACETYLCYSTEINE EACHEYE SCH ×4 (06:07→20:46)
[2016-11-12] MEDS: DOCUSATE SODIUM 100 MG CAPSULE PO SCH ×2 (09:36→20:46)
[2016-11-12] MEDS: CARVEDILOL 12.5 MG TABLET PO SCH ×2 (09:36→20:45)
[2016-11-12] MEDS: HYDROCHLOROTHIAZIDE 25 MG TABLET PO SCH (09:37)
[2016-11-12] MEDS: ASPIRIN EC 81 MG TABLET.DR PO SCH (09:37)
[2016-11-12] MEDS: POTASSIUM CHLORIDE 20 MEQ TABLET.ER PO SCH ×2 (09:38→20:45)
[2016-11-12] MEDS: LISINOPRIL 20 MG TABLET PO SCH ×2 (09:39→20:46)
[2016-11-12] MEDS: amLODIPine BESYLATE 5 MG TABLET PO SCH (09:39)
[2016-11-12] MEDS: GABAPENTIN 100 MG CAPSULE PO SCH ×2 (09:39→20:46)
[2016-11-12] MEDS: ARFORMOTEROL TARTRATE 15 MCG/2 ML AMPUL.NEB IH SCH (11:17)
[2016-11-12] MEDS: BUDESONIDE 0.5MG/2ML AMPUL.NEB NEB SCH (11:20)
[2016-11-12] MEDS: ESCITALOPRAM OXALATE 10 MG TABLET PO SCH (15:22)
[2016-11-12] MEDS: ATORVASTATIN CALCIUM 80 MG TABLET PO SCH (20:45)
[2016-11-13] MEDS ORDERED: HYDROcodone /APAP 5/325 1 EACH TABLET ONE (03:14)
[2016-11-13] MEDS: PANTOPRAZOLE SODIUM 40 MG TABLET PO SCH (06:06)
[2016-11-13] MEDS: LEVOTHYROXINE SODIUM 25 MCG TABLET PO SCH (06:06)
[2016-11-13] MEDS ORDERED: IBUPROFEN 400 MG TABLET PO PRN (06:09)
[2016-11-13] MEDS ORDERED: IBUPROFEN 400 MG TABLET PO ONE (06:09)
[2016-11-13] MEDS: ACETYLCYSTEINE EACHEYE SCH ×4 (06:45→20:18)
[2016-11-13] MEDS: DOCUSATE SODIUM 100 MG CAPSULE PO SCH ×2 (09:34→20:18)
[2016-11-13] MEDS: ASPIRIN EC 81 MG TABLET.DR PO SCH (09:34)
[2016-11-13] MEDS: GABAPENTIN 100 MG CAPSULE PO SCH ×2 (09:34→20:18)
[2016-11-13] MEDS: amLODIPine BESYLATE 5 MG TABLET PO SCH (09:34)
[2016-11-13] MEDS: POTASSIUM CHLORIDE 20 MEQ TABLET.ER PO SCH ×2 (09:34→20:17)
[2016-11-13] MEDS: CARVEDILOL 12.5 MG TABLET PO SCH ×2 (09:34→20:17)
[2016-11-13] MEDS: LISINOPRIL 20 MG TABLET PO SCH ×2 (09:34→20:18)
[2016-11-13] MEDS: HYDROCHLOROTHIAZIDE 25 MG TABLET PO SCH (09:35)
[2016-11-13] MEDS: ARFORMOTEROL TARTRATE 15 MCG/2 ML AMPUL.NEB IH SCH (11:15)
[2016-11-13] MEDS: BUDESONIDE 0.5MG/2ML AMPUL.NEB NEB SCH (11:15)
[2016-11-13] MEDS: ESCITALOPRAM OXALATE 10 MG TABLET PO SCH (14:08)
[2016-11-13] MEDS: HYDROcodone /APAP 5/325 1 EACH TABLET PO PRN (16:40)
[2016-11-13] MEDS: ATORVASTATIN CALCIUM 80 MG TABLET PO SCH (20:18)
[2016-11-14] MEDS: HYDROcodone /APAP 5/325 1 EACH TABLET PO PRN (03:36)
[2016-11-14] MEDS: PANTOPRAZOLE SODIUM 40 MG TABLET PO SCH (05:45)
[2016-11-14] MEDS: LEVOTHYROXINE SODIUM 25 MCG TABLET PO SCH (05:45)
[2016-11-14] MEDS: ACETYLCYSTEINE EACHEYE SCH (06:14)
[2016-11-14] MEDS: CARVEDILOL 12.5 MG TABLET PO SCH (07:41)
[2016-11-14] MEDS: ASPIRIN EC 81 MG TABLET.DR PO SCH (07:41)
[2016-11-14] MEDS: DOCUSATE SODIUM 100 MG CAPSULE PO SCH (07:41)
[2016-11-14] MEDS: GABAPENTIN 100 MG CAPSULE PO SCH (07:42)
[2016-11-14] MEDS: LISINOPRIL 20 MG TABLET PO SCH (07:42)
[2016-11-14] MEDS: amLODIPine BESYLATE 5 MG TABLET PO SCH (07:42)
[2016-11-14] MEDS: HYDROCHLOROTHIAZIDE 25 MG TABLET PO SCH (07:42)
[2016-11-14] MEDS: POTASSIUM CHLORIDE 20 MEQ TABLET.ER PO SCH (07:42)
--- NOTE | 2016-11-14 08:09 | Discharge Summary ---
Discharge Summary - Discharge Sumary History of Present Illness: Patient presents for SNF admission. She reports 10-24-16 she fell and fractured her L wrist. She noted some L hip pain in Dr. Escoto's office and was found to have a L hip fracture. Underwent repair of both. Due to nature of injury, patient is being referred to SNF for strenthening and conditioning before returning home. Post op course has been unremarkable. Questions surround her anticoagulation. I was told by DR. Escoto's PA that we can put her on Lovenox. However Dr. Carney and Dr. 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 According to patient she told Dr. Carney she will refuse to be on Xarelto due to "what it did" to her body the last time she took it. So they settled on lovenox for 2 weeks - this is what is on her discharge orders. Condition at Discharge: Stable Home Medications: Ambulatory Orders Medication Instructions Recorded Albuterol Sulfate [Ventolin HFN] 2.5 mg NEB Q4 PRN 10/29/16 Arformoterol Tartrate [Brovana] 15 mcg IH DAILY 10/29/16 Aspirin [Adult Low Dose Aspirin EC] 81 mg PO DAILY 10/29/16 Atorvastatin Calcium 40 mg PO HS 10/29/16 Budesonide [Pulmicort] 0.5 mg IH DAILY 10/29/16 Calcium Citrate/Vitamin D3 1 each PO DAILY 10/29/16 [Calcium Citrate +Vit D3 Tablet] Carvedilol [Coreg] 12.5 mg PO BS 10/29/16 Escitalopram Oxalate [Lexapro] 10 mg PO QD 10/29/16 Gabapentin [Neurontin] 100 mg PO BID 10/29/16 HYDROcodone /APAP 5/325 [[place] 1 - 2 each PO Q4 PRN 10/29/16 5/325] Hydrochlorothiazide [Hydrodiuril] 12.5 mg PO DAILY 10/29/16 Levothyroxine Sodium [Synthroid] 50 mcg PO DAILY 10/29/16 Lisinopril [Prinivil] 20 mg PO BID 10/29/16 Oxygen 2 l INH DAILY 10/29/16 Pantoprazole Sodium [Protonix] 40 mg PO 0700 10/29/16 Potassium Chloride [Klor-Con M20] 20 meq PO BS 10/29/16 amLODIPine BESYLATE [Norvasc] 5 mg PO 0900 10/29/16 Acetylcysteine 1 drop EACHEYE [id number] 11/14/16 Aspirin EC [Ecotrin] 325 mg PO DAILY #30 tablet. 11/14/16 Consultations this Visit: None Procedures this Visit: None Allergies/Adverse Reactions: Allergies Allergy/AdvReac Type Severity Reaction Status Date / Time iodixanol [From Visipaque] AdvReac Mild Hives Verified 10/29/16 19:46 IV Contrast Allergy Uncoded 10/29/16 19:46 Discharge Summary: Patient did well with PT/OT for her L hip fx and L radius fx repair. She needed a platform on a walker for ambulation. BP stable. Lovenox for 2 weeks then transitioned to ASA 81 mg daily (Patient aware of DR. Carney recommendation). Hospital Course: Discharge Dx: L hip fx. L radius fx. COPD - O2 dependent. HTN. H/o DVT/PE. Disposition - home with home health.
[2016-11-14] MEDS: BUDESONIDE 0.5MG/2ML AMPUL.NEB NEB SCH (09:04)
[2016-11-14] MEDS: ARFORMOTEROL TARTRATE 15 MCG/2 ML AMPUL.NEB IH SCH (09:06)
[2016-11-14 15:27] VITALS: BP 152/72
== END 2016-11-14 11:12 | disposition home health service (06) | DRG 561 ==
LOC: SOUTH 11:32
PROVIDERS: ADMIT Family Medicine; ATTEND Family Medicine
DX: S72.002S Fracture of unspecified part of neck of left femur, sequela (principal); S62.102S Fracture of unspecified carpal bone, left wrist, sequela; J43.9 Emphysema, unspecified; R53.1 Weakness; I10 Essential (primary) hypertension
CPT/HCPCS: 94640; 94760; 97110; 97112; 97116; 97162; 97165; 97530; 97535; A9270; J1650; J7626

== ENCOUNTER 2018-12-15 10:18 | Emergency (ER) | payer MEDICARE, OTHER ==
--- NOTE | 2019-02-13 16:30 | Diagnostic Imaging Report ---
[facility] [address] [facility].[address] [address] Report Submission Date: Dec 15, 2018 11:23:05 AM CDT Patient Study Name: SAMANTHA OHARA Date: Dec 15, 2018 10:53:01 AM CDT Modality Type: DX Gender: F Description: WRIST 3 VIEWS OR MORE : 34 Institution: [facility] Physician: [facility] Three views right wrist Clinical history: Fall yesterday. Pain. Findings: Examination right wrist in palmar, lateral and oblique views demonstrates osteopenia of the bony structures. There is a transverse impacted fracture distal radius with buckling of the dorsal cortex. There is mild comminution with fracture line also extending to the distal articular surface. Distal ulna appears intact. The radiocarpal relationship is maintained. There are degenerative changes in lateral intercarpal and 1st carpometacarpal joints. Impression: 1. Comminuted transverse impacted fracture distal radius. 2. Osteopenia and degenerative changes. Electronically signed on Dec 15, 2018 11:23:05 AM CDT by: Edwin REDD
== END 2018-12-15 11:53 ==
LOC: ED 10:18
DX: S52.91XA Unspecified fracture of right forearm, initial encounter for closed fracture (principal); X58.XXXA Exposure to other specified factors, initial encounter; Y99.8 Other external cause status
CPT/HCPCS: 73110; 99282

== ENCOUNTER 2019-07-01 10:58 | Outpatient (CLI) | payer MEDICARE, OTHER ==
--- NOTE | 2019-07-01 16:39 | Diagnostic Imaging Report ---
PATIENT MR#: [id number] PATIENT PATIENT NAME: SAMANTHA OHARA DATE OF : 1930 REFERRING PHYSICIAN: Amaury Erazo EXAM DATE: 07/01/2019 ACCESSION NUMBER: [id number] EXAM DESCRIPTION: CT CHEST W/O CONTRAST CLINICAL HISTORY: FOLLOW UP LUNG LESION TECHNIQUE: CT chest without contrast. COMPARISON: No pertinent prior studies are available at this time. CT CHEST WITHOUT CONTRAST: Lungs: Moderate diffuse emphysematous changes with intralobular bullae measuring up to 4.5 cm in the right middle lobe. There is chronic collapse of the right middle lobe, with peripheral chain sutures indicating history of partial lobectomy. Noncalcified nodule in the left upper lobe measures 6.5 mm (axial image 15). There are sca ttered calcified granulomas, largest in the right upper lobe measuring 4.5 x 7 mm (axial image 13). Scattered atelecta sis in the bilateral lower lobes. No infiltrate, masses, pneumothorax or effusion. Heart: Mild cardiomegaly. No significant effusion. Coronary artery disease. Aorta: Normal caliber. Moderate atherosclerotic calcification of the aortic arch and descending aorta . Mediastinum and becky: Calcified mediastinal lymph nodes indicate prior granulomatous process. Bony thorax: Sclerotic lesion in the right C7 pedicle has the appearance of bone island, in a patien t without personal history of cancer. Degenerative thoracolumbar spondylosis, more pronounced at L1-2 and L2-3. Limited upper abdomen: No acute findings. IMPRESSION: 1. Multiple bilateral pulmonary nodules, the majority of which are calcified, indicating prior granul omatous process. The largest noncalcified nodule measures 6.5 mm in the left upper lobe. Comparison to prior exams is required, to exclude interval enlargement. If prior exams cannot be obtained for comparison, follow-up imaging is recommended at 6, 12 and 24 months (for patients with high personal risk of lung cancer) or 12 and 24 months (for patie nts with low personal risk of lung cancer), to establish two-year stability. 2. Moderate diffuse emphysema. 3. Evidence of prior partial lung resection of the right middle lobe. 4. Coronary artery disease and aortic arteriosclerosis. 5. Solitary sclerotic lesion of the right C7 pedicle has the appearance of benign bone island or oste radha. However, comparison of prior exams is recommended in patients who have personal history or high risk profile f or metastatic disease. Read by: Dr. Tex Coleman Transcribed by: Tex Coleman Transcribed Date: 07/01/2019 4:38:48 PM Electronically signed by: Dr. Tex Coleman Date signed: 07/01/2019 4:38:48 PM
== END 2019-07-01 11:08 ==
LOC: RAD 10:58
PROVIDERS: ATTEND Internal Medicine Hematology & Oncology
DX: R91.1 Solitary pulmonary nodule (principal)
CPT/HCPCS: 71250